=== PATIENT | female | born 1995 | race Caucasian/White ===

== ENCOUNTER 2018-06-24 08:37 | Observation (INO) | payer SELFPAY ==
[~2018-06-24] VITALS: Ht 160 cm; Wt 73.0 kg
[2018-06-24] MEDS ORDERED: PREN1COM PO (09:31)
== END 2018-06-24 10:49 | disposition home or self-care (01) ==
LOC: L&D 08:37
PROVIDERS: ADMIT Obstetrics & Gynecology; ATTEND Obstetrics & Gynecology
DX: O62.9 Abnormality of forces of labor, unspecified (principal); Z3A.37 37 weeks gestation of pregnancy
CPT/HCPCS: 99281; G0378

== ENCOUNTER 2018-06-28 16:07 | Observation (INO) | payer MEDICAID ==
[~2018-06-28] VITALS: Ht 160 cm; Wt 82.6 kg
[~2018-06-28 16:07] MED LIST: PREN1COM PO
[2018-06-28] MEDS ORDERED: FOLI-43 MT (17:25)
== END 2018-06-28 17:30 | disposition home or self-care (01) ==
LOC: L&D 16:07
PROVIDERS: ADMIT Obstetrics & Gynecology; ATTEND Obstetrics & Gynecology
DX: O62.9 Abnormality of forces of labor, unspecified (principal); Z3A.38 38 weeks gestation of pregnancy
CPT/HCPCS: 99281; G0378

== ENCOUNTER 2018-07-08 00:11 | Observation (INO) | payer MEDICAID ==
[~2018-07-08] VITALS: Ht 160 cm; Wt 73.5 kg
[~2018-07-08 00:11] MED LIST changes: +FOLI-43 MT
== END 2018-07-08 04:51 | disposition home or self-care (01) ==
LOC: 8 EST LDRP 00:11
PROVIDERS: ADMIT Obstetrics & Gynecology Obstetrics; ATTEND Obstetrics & Gynecology Obstetrics
DX: O26.893 Other specified pregnancy related conditions, third trimester (principal); R10.30 Lower abdominal pain, unspecified; M54.5 Low back pain; Z3A.39 39 weeks gestation of pregnancy
CPT/HCPCS: G0378 ×2

== ENCOUNTER 2018-07-11 12:00 | Inpatient (IN) | payer MEDICAID ==
[~2018-07-11] VITALS: Ht 157.5 cm; Wt 73.5 kg
[2018-07-11] MEDS ORDERED: NALOXONE HCL 0.4 MG/ML 1ML VIAL IM PRN (17:15)
[2018-07-11] MEDS ORDERED: LIDOCAINE HCL 1% 20ML VIAL (Pyxis) INJ INFIL SCH (17:15)
[2018-07-11] MEDS ORDERED: METHYLERGONOVINE MALEATE 0.2 MG/ML IM PRN (17:15)
[2018-07-11] MEDS ORDERED: CARBOPROST TROMETHAMINE 250 MCG/ML AMPUL IM PRN (17:15)
[2018-07-11] MEDS: LACTATED RINGERS 1,000 ML IV SCH (18:02)
[2018-07-11 18:21] LABS: BASOPHILS % 0.3 % (0.0-2.0); HEMATOCRIT. 30.4 % (36.0-48.0); HEMOGLOBIN. 9.8 g/dL (12.0-16.0); LYMPHOCYTES % 10.8 % (20.0-50.0); MEAN CORPUSCULAR HEMOGLOBIN 26.9 pg (28.0-32.0); MEAN CORPUSCULAR VOLUME 83.3 fL (81.0-99.0); MEAN PLATELET VOLUME 10.3 fl (7.4-10.4); MONOCYTES % 5.9 % (2.0-8.0); PLATELET 178 x1000/uL (130-400); RED BLOOD CELL COUNT 3.65 mill/uL (4.2-5.4); RED CELL DISTRIBUTION WIDTH 15.5 % (11.6-14.6)
[2018-07-11 18:32] LABS: CLARITY URINE CLEAR (CLEAR); COLOR URINE YELLOW (YELLOW); KETONES URINE NEGATIVE (NEGATIVE); LEUKOCYTE ESTERASE URINE TRACE (NEGATIVE); NITRITE URINE NEGATIVE (NEGATIVE); OCCULT BLOOD URINE 2+ (NEGATIVE); PH URINE 6.5 (4.5-8.0); PROTEIN URINE NEGATIVE (NEGATIVE); SPECIFIC GRAVITY URINE 1.002 (1.005-1.030); UROBILINOGEN URINE 0.2 E.U./dL (0.2-1.0)
[2018-07-11 18:37] LABS: INR 0.9; PARTIAL THROMBOPLASTIN TIME 28.5 sec (23.4-31.0); PROTHROMBIN TIME 9.2 sec (9.1-11.1)
[2018-07-11 18:47] LABS: *AMPHETAMINES SCREEN URINE NEGATIVE (NEGATIVE); *BARBITURATES SCREEN URINE NEGATIVE (NEGATIVE); *BENZODIAZEPINES SCREEN URINE NEGATIVE (NEGATIVE); *COCAINE SCREEN URINE NEGATIVE (NEGATIVE); METHADONE URINE SCREEN NEGATIVE (NEGATIVE); OPIATES URINE SCREEN NEGATIVE (NEGATIVE)
[2018-07-11 18:48] LABS: CANNABINOID URINE SCREEN NEGATIVE (NEGATIVE)
[2018-07-11 18:49] LABS: PHENCYCLIDINE URINE SCREEN NEGATIVE (NEGATIVE)
[2018-07-11 19:56] LABS: HEPATITIS B SURFACE ANTIGEN NEGATIVE
[2018-07-11] MEDS: BUTORPHANOL TARTRATE 2 MG/ML VIAL IV PRN ×2 (20:01→23:04)
[2018-07-11] MEDS: DEXT 5%/LR + PITOCIN 20UNITS/L 1,000 ML IV SCH (20:56)
[2018-07-12] MEDS: LACTATED RINGERS 1,000 ML IV SCH ×2 (00:26→07:40)
[2018-07-12] MEDS: BUTORPHANOL TARTRATE 2 MG/ML VIAL IV PRN ×3 (02:05→06:55)
[2018-07-12] MEDS ORDERED: OXYCODONE HCL/ACETAMINOPHEN 5/325MG TABLET PO PRN (12:00)
[2018-07-12] MEDS ORDERED: IBUPROFEN 400MG TABLET PO PRN (12:00)
[2018-07-12] MEDS ORDERED: LANOLIN OINT 0.25 GM TUBE TOP PRN (12:00)
[2018-07-12] MEDS ORDERED: GLYCERIN/WITCH HAZEL LEAF MEDICATED PAD TOP PRN (12:00)
[2018-07-12 13:00] VITALS: BP 118/69
[2018-07-12] MEDS: DEXT 5%/LR + PITOCIN 20UNITS/L 1,000 ML IV SCH (13:28)
[2018-07-12 13:30] VITALS: BP 112/66
[2018-07-12] MEDS ORDERED: METHYLERGONOVINE MALEATE 0.2 MG/ML ONE (14:21)
[2018-07-12] MEDS: DOCUSATE SODIUM 100MG CAPSULE PO SCH (21:31)
[2018-07-12 22:00] VITALS: BP 116/74
[2018-07-13 03:48] VITALS: BP 110/70
[2018-07-13 06:51] LABS: BASOPHILS % 0.3 % (0.0-2.0); EOSINOPHILS % 0.4 % (0.0-5.0); HEMATOCRIT. 27.5 % (36.0-48.0); HEMOGLOBIN. 9.2 g/dL (12.0-16.0); LYMPHOCYTES % 10.9 % (20.0-50.0); MEAN CORPUSCULAR HEMOGLOBIN 27.6 pg (28.0-32.0); MEAN CORPUSCULAR VOLUME 82.6 fL (81.0-99.0); MEAN PLATELET VOLUME 10.7 fl (7.4-10.4); MONOCYTES % 7.3 % (2.0-8.0); NEUTROPHILS % 81.1 % (40.0-76.0); PLATELET 155 x1000/uL (130-400); RED BLOOD CELL COUNT 3.33 mill/uL (4.2-5.4); RED CELL DISTRIBUTION WIDTH 16.2 % (11.6-14.6)
[2018-07-13 08:00] VITALS: BP 107/61
[2018-07-13] MEDS ORDERED: PRENATAL VIT/FE FUMARATE/FA TABLET PO SCH (09:00)
[2018-07-13 17:00] VITALS: BP 122/78
[2018-07-13 19:50] VITALS: BP 107/71
[2018-07-13] MEDS: DOCUSATE SODIUM 100MG CAPSULE PO SCH (21:32)
[2018-07-13] MEDS ORDERED: TETANUS, DIPHTHERIA, PERTUSSIS VAC/PF 0.5ML (>7YR OLD) IM ONE (22:30)
[2018-07-14 04:00] VITALS: BP 97/51
[2018-07-14 08:30] VITALS: BP 113/51
== END 2018-07-14 13:30 | disposition home or self-care (01) | DRG 560 ==
LOC: 8 EST LDRP 12:00 → OBSVTOIN 12:00 → 8EST 07-12 13:00
PROVIDERS: ADMIT Obstetrics & Gynecology; ATTEND Obstetrics & Gynecology
PROC: 10E0XZZ Delivery of Products of Conception, External Approach (ICD-10-PCS; principal; 2018-07-12)
DX: O80 Encounter for full-term uncomplicated delivery (principal); Z37.0 Single live birth; Z3A.40 40 weeks gestation of pregnancy
CPT/HCPCS: 36415; 80305; 86592; 86703; 86762; 86850; 86900; 87340; J0595; J2210; J2310; J2590; J3490